=== PATIENT | female | born 1960 | race Caucasian/White ===

== ENCOUNTER → 2016-09-26 | Day surgery (SDC) | payer BC, OTHER ==
[2016-09-19 14:35] VITALS: BMI 21.0
[~2016-09-26] VITALS: Ht 162.6 cm; Wt 56.8 kg
[~2016-09-26] MED LIST: ASCA500 PO; CALC500T68 PO; LAMO150T32 PO; LIDOCAINE HCL 2% 2 ML VIAL (20MG/ML) ONE; MULT-506 PO; PROPOFOL IV EMULSION 10 MG/ML 20 ML VIAL IV ONE; SODIUM CHLORIDE 0.9% 500ML 500 ML IV ONE
[2016-09-26 12:01] VITALS: Ht 162.6 cm; Wt 56.8 kg
--- NOTE | 2016-09-26 12:41 | Endo History and Physical ---
History & Physical Date of Service: Sep 26, 2016. Chief Complaint: SCREENING Referring Physician: DR. HUNT History of Present Illness 56 yo CF who presents for screening colonoscopy. Past Surgical History Hx Cardiac Surgery: No Hx Internal Defibrillator: No Hx Pacemaker: No Hx Abdominal Surgery: No Hx of Implantable Prosthesis: No Hx Post-Op Nausea and Vomiting: No Hx Cancer Surgery: No Hx Thoracic Surgery: No Hx Orthopedic: No Hx Urinary Tract Surgery: Yes (LITHOTRIPSY) Family History None Social History Smoking Status: Never Smoker Hx Substance Use: No Hx Alcohol Use: No Allergies Coded Allergies: Penicillins (Verified Allergy, Unknown, UNKNOWN - HAPPENED A CHILD, ) Sulfa Drugs (Verified Allergy, Unknown, "DOES NOT DO WELL WITH SULFA DRUGS " FUZZY, 09/26/16) Current Medications Reported Home Medications Medications Dose Route/Sig Max Daily Dose Days Date Category Multivitamin (Multivitamins) Tab 1 Tab PO QAM 09/19/16 Reported Vitamin C (Ascorbic Acid) 500 Mg Tab 1 Tab PO QAM 03/04/16 Reported Calcium/Magnesium (Calcium W/ Magnesium) 1 Tab Tab 1 Tab PO QAM 02/09/16 Reported Lamictal (Lamotrigine) 150 Mg Tab 150 Mg PO QAM 02/19/14 Reported Vital Signs Weight (Kilograms): 56.82 Height (Feet): 5 Height (Inches): 4 Date Time Temp Pulse Resp B/P Pulse Ox O2 Delivery O2 Flow Rate FiO2 09/26/16 12:12 36.5 74 18 149/81 100 Room Air Physical Exam General Appearance: WD/WN, no apparent distress Respiratory/Chest: Auscultation: breath sounds normal Cardiovascular: Heart Auscultation: RRR Abdomen: Bowel Sounds: normal Inspection & Palpation: soft, non-distended, no tenderness, guarding & rebound Assessment and Plan Assessment: 56 yo CF who presents for screening colonoscopy. Plan: Proceed with colonoscopy.
--- NOTE | 2016-09-26 13:09 | Discharge Instructions ---
Endoscopy Patient Instructions Date / Procedure(s) Performed Sep 26, 2016. Colonoscopy Allergy Information Coded Allergies: Penicillins (Verified Allergy, Unknown, UNKNOWN - HAPPENED A CHILD, ) Sulfa Drugs (Verified Allergy, Unknown, "DOES NOT DO WELL WITH SULFA DRUGS " FUZZY, 09/26/16) Discharge Date / Findings Sep 26, 2016. Colon polyps Internal hemorrhoids Medication Instructions OK to resume all medications today as prescribed Reported Home Medications Medications Dose Route/Sig Max Daily Dose Days Date Category Multivitamin (Multivitamins) Tab 1 Tab PO QAM 09/19/16 Reported Vitamin C (Ascorbic Acid) 500 Mg Tab 1 Tab PO QAM 03/04/16 Reported Calcium/Magnesium (Calcium W/ Magnesium) 1 Tab Tab 1 Tab PO QAM 02/09/16 Reported Lamictal (Lamotrigine) 150 Mg Tab 150 Mg PO QAM 02/19/14 Reported Provider Instructions Activity Restrictions - No exercising or heavy lifting for 24 hours. - Do not drink alcohol the day of the procedure. - Do not drive a car or operate machinery until the day after the procedure. - Do not make any important decisions or sign important papers in 24 hours after the procedure. Following Day: - Return to full activity which may include returning to work/school. Diet Start your diet with liquids and light foods (jello, soup, juice, toast). Then eat your usual diet if not nauseated. Treatment For Common After Affects For mild abdominal pain, bloating, or excessive gas: - Rest - Eat lightly - Lie on right side Follow-Up Information Follow-up with DR. HUNT as scheduled Anesthesia Information What You Should Know You have had a procedure that required some medicine to reduce anxiety and discomfort. This treatment is called moderate sedation. After receiving the treatment, you may be sleepy, but you will be able to breathe on your own. The effects of the treatment may last for several hours. Follow these instructions along with Activity/Diet recommendations noted above: * Do NOT do anything where dizziness or clumsiness would be dangerous. * Rest quietly at home today, then you can be up and about tomorrow. * Have a responsible person stay with you the rest of today. * You may have had an I.V. today. If so, you may take the dressing off later today. Recommendations Call your doctor if: * Trouble breathing * Continuous vomiting for more than 24 hours * Temperature above 101 degrees * Severe abdominal pain or bloating * Pain not relieved by pain medicine ordered * There is increased drainage or redness from any incision * A large amount of rectal bleeding greater than 2-3 tablespoons. (If you had a polyp/s removed or have hemorrhoids, a small amount of blood - from the rectum is to be expected.) * You have any unanswered questions or concerns. IN THE EVENT OF A SERIOUS EMERGENCY, GO TO THE NEAREST EMERGENCY ROOM Your discharge instructions were prepared by provider Floyd Mayorga. Patient Instructions Signature Page Jaclyn Dorado Patient (or Guardian) Signature/Date: I have read and understand the instructions given to me by my caregivers. Caregiver/RN/Doctor Signature/Date: The above-named patient and/or guardian has received patient instructions on this date. + Original Patient Signature Page (only) stays with chart. Please make copy for patient.
--- NOTE | 2016-09-26 13:17 | GI REPORT ---
Procedure Date: 09/26/2016 12:39 PM Procedure: Colonoscopy Indications: High risk colon cancer surveillance: Personal history of colonic polyps Medicines: Monitored Anesthesia Care Complications: No immediate complications. Estimated Blood Loss: Estimated blood loss: none. Procedure: Pre-Anesthesia Assessment: - Prior to the procedure, a History and Physical was performed, and patient medications and allergies were reviewed. The patient's tolerance of previous anesthesia was also reviewed. The risks and benefits of the procedure and the sedation options and risks were discussed with the patient. All questions were answered, and informed consent was obtained. Prior Anticoagulants: The patient has taken no previous anticoagulant or antiplatelet agents. ASA Grade Assessment: II - A patient with mild systemic disease. After reviewing the risks and benefits, the patient was deemed in satisfactory condition to undergo the procedure. After I obtained informed consent, the scope was passed under direct vision. Throughout the procedure, the patient's blood pressure, pulse, and oxygen saturations were monitored continuously. The scope was introduced through the anus and advanced to the terminal ileum. The colonoscopy was performed without difficulty. The patient tolerated the procedure well. The quality of the bowel preparation was good. The terminal ileum, ileocecal valve, appendiceal orifice, and rectum were photographed. Findings: Two sessile polyps were found in the transverse colon and in the cecum. The polyps were 5 to 6 mm in size. These polyps were removed with a hot snare. Resection and retrieval were complete. Non-bleeding internal hemorrhoids were found during retroflexion. The hemorrhoids were small. Impression: - Two 5 to 6 mm polyps in the transverse colon and in the cecum, removed with a hot snare. Resected and retrieved. - Non-bleeding internal hemorrhoids. Recommendation: - Resume previous diet. - Continue present medications. - Repeat colonoscopy for surveillance based on pathology results. - Return to primary care physician as previously scheduled. Floyd MayorgaDO 09/26/2016 1:17:04 PM This report has been signed electronically. Note Initiated On: 09/26/2016 12:39 PM I attest to the content of the Intraoperative Record and orders documented therein, exceptions below
[2016-09-26 13:40] VITALS: BP 117/65; PULSE 62; O2SAT 100
--- NOTE | 2016-09-26 14:34 | Anesthesiology Progress Note ---
Anesthesia Post Op Note Date & Time Sep 26, 2016 at 14:34 Vital Signs Pain Intensity: 0 Vital Signs Past 12 Hours Date Time Temp Pulse Resp B/P Pulse Ox O2 Delivery O2 Flow Rate FiO2 09/26/16 13:40 62 16 117/65 100 Room Air 09/26/16 13:25 61 16 114/66 99 Room Air 09/26/16 13:10 64 16 88/50 99 Nasal Cannula 3 09/26/16 12:12 36.5 74 18 149/81 100 Room Air Notes Mental Status: alert / awake / arousable, participated in evaluation Pt Amnestic to Procedure: Yes Nausea / Vomiting: adequately controlled Pain: adequately controlled Airway Patency, RR, SpO2: stable & adequate BP & HR: stable & adequate Hydration State: stable & adequate Anesthetic Complications: no major complications apparent
== END | disposition home or self-care (01) ==
LOC: C.GI 11:49
PROVIDERS: ATTEND Internal Medicine
DX: Z12.11 Encounter for screening for malignant neoplasm of colon (principal); Z86.010 Personal history of colon polyps; D12.0 Benign neoplasm of cecum; D12.3 Benign neoplasm of transverse colon; K64.8 Other hemorrhoids; Z88.1 Allergy status to other antibiotic agents; Z88.2 Allergy status to sulfonamides

== ENCOUNTER → 2016-10-05 | Outpatient (CLI) | payer BC ==
[~2016-10-05] MED LIST changes: -LIDOCAINE HCL 2% 2 ML VIAL (20MG/ML) ONE; -PROPOFOL IV EMULSION 10 MG/ML 20 ML VIAL IV ONE; -SODIUM CHLORIDE 0.9% 500ML 500 ML IV ONE
== END | disposition home or self-care (01) ==
LOC: C.LAB 10:53
PROVIDERS: ATTEND Psychiatry & Neurology Psychiatry
DX: E55.9 Vitamin D deficiency, unspecified (principal); F33.1 Major depressive disorder, recurrent, moderate

== ENCOUNTER → 2017-03-19 | Outpatient (CLI) | payer BC ==
--- NOTE | 2017-03-19 14:43 | DIAGNOSTIC IMAGING REPORT ---
[facility] CLINICAL HISTORY: Nephrolithiasis. COMPARISON STUDY: [facility]UB April 08, 2016. FINDINGS: Pelvic calcifications are unchanged and likely reflect phleboliths. No urinary calculi are identified. Bowel gas pattern is normal. There is mild dextroscoliosis of the lumbar spine. IMPRESSION: No urinary calculi identified. Electronically signed by: Levi Andrews M.D. 03/19/2017 2:41 PM Dictated Date/Time: 03/19/2017 2:40 PM
== END | disposition home or self-care (01) ==
LOC: C.RAD 14:05
PROVIDERS: ATTEND Nurse Practitioner Family
DX: N20.0 Calculus of kidney (principal); Z11.59 Encounter for screening for other viral diseases

== ENCOUNTER → 2017-03-26 | Outpatient (CLI) | payer BC ==
--- NOTE | 2017-03-27 14:06 | MAMMOGRAPHY REPORT ---
BILATERAL DIGITAL SCREENING MAMMOGRAM WITH CAD: 03/26/2017 CLINICAL HISTORY: Patient presents for routine screening. S/P bilateral augmentation. TECHNIQUE: Bilateral CC and MLO views of the breasts with and without implant displacement views were obtained. Current study was also evaluated with a Computer Aided Detection (CAD) system. COMPARISON: Comparison is made to exams dated: 10/09/2015 mammogram, 10/05/2014 mammogram, 07/12/2013 m ammogram, 07/08/2012 mammogram, 07/03/2011 mammogram, and 07/02/2010 mammogram - [facility]. BREAST COMPOSITION: The tissue of both breasts is heterogeneously dense, which may obscure small mas ses. FINDINGS: There are a few scattered stable punctate microcalcifications in the left breast. Stable asymmetry in the medial right breast, best seen on the implant displaced right CC view. No suspicious mass, architectural distortion or cluster of microcalcifications is seen. IMPRESSION: ACR BI-RADS CATEGORY 2: BENIGN There is no mammographic evidence of malignancy. A 1 year screening mammogram is recommended. The pa tient will receive written notification of the results. Approximately 10% of breast cancers are not detected with mammography. A negative mammographic report should not delay biopsy if a clinically suggestive mass is present. Alix Spangler M.D. ay/:03/26/2017 15:57:39 Candy Separator [place]: Angie ALMAZAN(R)(M), [facility] letter sent: Normal 1/2 BI-RADS Code: ACR BI-RADS Category 2: Benign
== END | disposition home or self-care (01) ==
LOC: C.MAMM 15:38
PROVIDERS: ATTEND Obstetrics & Gynecology
DX: Z12.31 Encounter for screening mammogram for malignant neoplasm of breast (principal); Z98.82 Breast implant status

== ENCOUNTER → 2017-11-12 | Outpatient (CLI) | payer BC ==
[~2017-11-12] MED LIST changes: +LAMO150T PO; -LAMO150T32 PO
[2017-11-12 16:29] LABS: BASO ABS # 0.06 K/uL (0-0.2); EOS % 3.1 %; EOS ABS # 0.18 K/uL (0-0.5); HEMATOCRIT 35.4 % (37-47); HEMOGLOBIN 12.1 g/dL (12.0-16.0); IG# 0.01 K/uL (0.00-0.02); LYMPH % 28.3 %; LYMPH ABS # 1.67 K/uL (1.2-3.4); MEAN CELL VOLUME 97.3 fL (80-100); MEAN CORPUSCULAR HEMOGLOBIN 33.2 pg (25-34); MEAN CORPUSCULAR HGB CONC 34.2 g/dl (32-36); MEAN PLATELET VOLUME 10.2 fL (7.4-10.4); MONO % 11.7 %; MONO ABS # 0.69 K/uL (0.11-0.59); NEUT % 55.7 %; NEUT ABS # 3.29 K/uL (1.4-6.5); PLATELET COUNT 297 K/uL (130-400); RED CELL DISTRIBUTION WIDTH CV 12.9 % (11.5-14.5); RED CELL DISTRIBUTION WIDTH SD 45.9 fL (36.4-46.3)
[2017-11-12 16:49] LABS: BLOOD UREA NITROGEN 13 mg/dl (7-18); CREATININE 0.72 mg/dl (0.60-1.20); GLUCOSE 72 mg/dl (70-99)
[2017-11-12 16:50] LABS: ALBUMIN 3.6 gm/dl (3.4-5.0); ALT/SGPT 26 U/L (12-78); AST/SGOT 16 U/L (15-37); CALCIUM 8.7 mg/dl (8.5-10.1); CARBON DIOXIDE 27 mmol/L (21-32); POTASSIUM 3.9 mmol/L (3.5-5.1); SODIUM 137 mmol/L (136-145)
[2017-11-12 17:00] LABS: ALKALINE PHOSPHATASE 92 U/L (45-117); TOTAL PROTEIN 7.3 gm/dl (6.4-8.2)
== END | disposition home or self-care (01) ==
LOC: C.LAB 15:21
PROVIDERS: ATTEND Nurse Practitioner Family
DX: R03.0 Elevated blood-pressure reading, without diagnosis of hypertension (principal)